=== PATIENT | female | born 1965 | race Caucasian/White ===

== ENCOUNTER 2023-01-31 20:23 | Emergency (ER) | payer OTHER ==
[~2023-01-31] VITALS: Ht 152.4 cm; Wt 70.3 kg
[2023-01-31 21:20] VITALS: BP 154/92
[2023-01-31] MEDS ORDERED: DEXAMETHASONE 4 MG/ML VIAL IM ONE (21:55)
[2023-01-31] MEDS ORDERED: METH4TAB1 PO (22:07)
[2023-01-31 22:16] VITALS: BP 154/92
--- NOTE | 2023-01-31 22:16 | NUR ---
Patient discharged with v/s stable. Written and verbal after care instructions given and explained. New rx methyprednisone. Patient verbalized understanding. Ambulatory with steady gait. All questions addressed prior to discharge. Advised to follow up with PMD.
== END 2023-01-31 22:16 | disposition home or self-care (01) ==
LOC: MED 20:23
DX: J02.8 Acute pharyngitis due to other specified organisms (principal); B97.89 Other viral agents as the cause of diseases classified elsewhere
CPT/HCPCS: 87081; 96372; 99283; J1100